=== PATIENT | male | born 1965 | race Caucasian/White ===

== ENCOUNTER 2022-03-05 19:07 | Inpatient (IN) | payer OTHER ==
[~2022-03-05] VITALS: Ht 175.3 cm; Wt 81.2 kg
[2022-03-05 22:00] VITALS: BP 146/86
--- NOTE | 2022-03-05 23:00 | NUR ---
MS TANK WORKER NOTES: RECEIVED PATIENT VIA RNEY DIRECT ADMIT TO [facility] AT 2130 AWAKE NO COMPLAIN OF PAIN AND DISCOMFORT NOTIFY DR RYAN ROONEY, PATIENT IS A/OX2-3 WITH EPISODE OF CONFUSION, IV LINE INSERTED AT RIGHT HAND #[id number]. SKIN ASSESSMENT DONE DOCUMENTED, INVENTORY DONE, PATIENT WAS ORIENTED TO ROOM REMIND TO USE THE CALL LIGHTS WHEN NEEDED ASSISTANCE, PATIENT KEPT CLEAN AND DRY ALL NEEDS MET, WILL CONTINUE TO MONITOR.
[2022-03-05] MEDS ORDERED: ONDANSETRON HCL/PF 4 MG/2 ML VIAL IVP PRN (23:30)
[2022-03-05] MEDS ORDERED: MAGNESIUM HYDROXIDE 30 ML UDC PO PRN (23:30)
[2022-03-05] MEDS ORDERED: ACETAMINOPHEN 325 MG TABLET PO PRN (23:30)
[2022-03-05] MEDS ORDERED: CHLORDIAZEPOXIDE HCL 25 MG CAPSULE PO SCH (23:30)
[2022-03-05] MEDS ORDERED: Z GUARD REMEDY 4 OZ OINT TP PRN (23:30)
[2022-03-05] MEDS: LACTULOSE 10 G/15 ML UDC (PYXIS) PO SCH (23:48)
[2022-03-05] MEDS: THIAMINE HCL 100 MG TABLET PO SCH (23:48)
[2022-03-06] MEDS: LACTULOSE 10 G/15 ML UDC (PYXIS) PO SCH ×4 (05:36→22:49)
--- NOTE | 2022-03-06 06:39 | NUR ---
MS RN CLOSING NOTES: PATIENT SLEEP IN BED COMFORTABLY, AROUSABLE TO VERBAL STIMULI, BED IN LOW POSITION CALL LIGHTS WITHIN REACH, NO COMPLAIN OF PAIN AND DISCOMFORT AT THIS TIME, ON ROOM AIR SATURATING WELL, PATIENT IS A/O X2-3, CONFUSED, AMBULATORY WITH ASSISTANCE, PATIENT KEPT CLEAN AND DRY ALL NEEDS MET WILL CONTINUE TO MONITOR.
[2022-03-06 06:49] LABS: BASOPHILS # (AUTO) 0.1 K/uL (0.0-0.2); BASOPHILS % (AUTO) 1.5 % (0.0-2.0); HEMATOCRIT 37 % (39-51); HEMOGLOBIN 12.3 g/dL (13.5-17.5); LYMPHOCYTES # (AUTO) 1.9 K/uL (0.8-4.8); LYMPHOCYTES % (AUTO) 44.6 % (20.0-44.0); MEAN CORPUSCULAR HGB CONC 33 g/dl (31.0-36.0); MEAN CORPUSCULAR VOLUME 86 fL (80-96); MONOCYTES # (AUTO) 0.4 K/uL (0.1-1.30); MONOCYTES % (AUTO) 10.1 % (2.0-12.0); NEUTROPHILS # (AUTO) 1.7 K/uL (1.8-8.9); NEUTROPHILS % (AUTO) 41.8 % (43.0-81.0); PLATELET COUNT (AUTO) 62 K/uL (150-450); RED BLOOD CELL COUNT(AUTO) 4.32 MIL/uL (4.5-6.0); WHITE BLOOD COUNT (AUTO) 4.2 K/uL (4.3-11.0)
[2022-03-06 07:09] LABS: SERUM AMMONIA 71 umol/L (11-32)
[2022-03-06 07:23] LABS: ALBUMIN 2.9 g/dL (3.4-5.0); BILIRUBIN,DIRECT 0.4 mg/dL (0.0-0.2); BILIRUBIN,TOTAL 1.7 mg/dL (0.2-1.0); CALCIUM, SERUM 9.1 mg/dL (8.5-10.1); CREATININE 0.9 mg/dL (0.6-1.3); MAGNESIUM 2.1 mg/dL (1.8-2.4); PHOSPHORUS 5.4 mg/dL (2.5-4.9); POTASSIUM 3.4 mmol/L (3.5-5.1); TOTAL PROTEIN, SERUM 8.2 g/dL (6.4-8.2)
--- NOTE | 2022-03-06 07:30 | NUR ---
MS RN OPENING NOTES: RECEIVED PATIENT AWAKE IN BED COMFORTABLY. NO COMPLAIN OF PAIN AND DISCOMFORT AT THIS TIME, ON ROOM AIR SATURATING WELL, PATIENT IS A/O X2-3, WITH EPISODES OF CONFUSION. ALL SAFETY MEASURES IN PLACE.BED IN LOW POSITION AND LOCKED.CALL LIGHTS AND TABLE WITHIN REACH, SIDE RAILS TIMES 2 .AMBULATORY WITH ASSISTANCE. WILL CONTINUE TO MONITOR.
[2022-03-06 07:32] LABS: THYROID STIMULATING HORMONE 1.693 uIU/mL (0.358-3.74)
[2022-03-06] MEDS: PANTOPRAZOLE 40 MG TABLET.DR PO SCH (07:41)
[2022-03-06] MEDS: FOLIC ACID 1 MG TABLET PO SCH (08:51)
[2022-03-06] MEDS: ZINC SULFATE 220 MG CAPSULE PO SCH (08:51)
[2022-03-06] MEDS: THIAMINE HCL 100 MG TABLET PO SCH (08:51)
[2022-03-06] MEDS ORDERED: POTASSIUM CHLORIDE 20 MEQ TAB.PRT.SR PO ONE (09:00)
[2022-03-06] MEDS ORDERED: RIFAXIMIN 550 MG TABLET PO SCH (09:00)
--- NOTE | 2022-03-06 09:00 | NUR ---
RN NOTES GOT THE 0900 AM LIBRIUM 25 MG MEDICATION FROM [employer]. SCANNED THE MEDICATION, WHEN WANTED TO SAVE THE RECORD IT GAVE ME AN ERROR WRITTEN IN PURPLE COLOR THAT IT CAN NOT BE FILED. CALLED PHARMACY AND THEY STATED MEDICATION IS DC BY DR CUNNINGHAM. RETURNED THE MEDICATION TO [employer] AND ASIF POE RN WAS THE WITNESS.
[2022-03-06 10:47] LABS: BASOPHILS % (MANUAL) 0 % (0.0-2.0); EOSINOPHILS % (MANUAL) 2 % (0-4); LYMPHOCYTES % (MANUAL) 46 % (16-48); MONOCYTES % (MANUAL) 13 % (0-11.0); NEUTROPHILS % (MANUAL) 39 (42-76)
--- NOTE | 2022-03-06 13:05 | NUR ---
SS Consult: SS CONSULT requested for possible homelessness and Hx. of drug use. The pt. is a 56 -year-old male patient who was transferred for outside facility due to complaints of confusion per EMR. Per EMR, the pt. has Hx. of hepatitis C, cirrhosis, polysubstance abuse, possible prior stroke. Upon SS consult, the pt. is Alert & Oriented x 3 and makes good eye contact. The pt. appears well-groomed with euthymic mood & affect. pt.s speech is WNL and slower thought process per pt. Pt. remained calm & cooperative throughout interview. Pt. denies current SI/ HI and denies hallucinations. SW explored Patients mental health Hx. Pt. denies any mental illness. SW explored pt.s living situation. Patient states he resides at [facility]. SW explored pt.s drug & ETOH use. Pt. states he ahs been sober since September 2021. SW explored pt.s support system. Pt. states he has family in [place] but he is not in communication with them. Plan: Pt. states he would like to return to [facility] [[address], [place] [address]] when ready for discharge. Per nurse, she was notified by [facility] supervisor, [phone] Lillie will be picking up the pt. when ready for discharge. Pt. signed homeless waiver and it was placed in the pt.s chart. Pt. accepted resources: Year-round shelters: [place] [facility] [address] [place], [place] [phone] ; [facility] [address] [place] [address]; [facility] [id number] [facility] [address] Hygiene: [facility]: [address] [address] ; [facility] [address] [facility] Dante ; [facility] [address] . Food Resources: [place] [facility] at [facility]- [address] [place]; Meet Each Need with Dignity ([facility]) [address] [address]. Tiffany; [facility] [address] [facility]; [facility] 8531 [facility]. Mental Health resources provided: [facility] [address] [place] [address] ; [facility] [address] [facility] [address], [place], [place] [id number] ; [facility] [address] [facility] [place], [place] [phone] ; [facility] [address] [place], [place] [address] Healthcare Clinics: [facility] [address] [facility], [address] [place]. [place] ; [facility] [address] [facility] [address] [place] [address]; [facility] [place] [address] [facility]. [place] [phone] Counseling--Outpatient [facility] [address] [facility], [place] [address] (Specializes in in-depth psychotherapy for emotional distress: anxiety, depression, interpersonal conflicts, life transitions, childhood abuse) [facility] [address] [place], [place] [phone] (Assist with solving problem marital difficulties, separation & divorce, aging parents, & grief, chronic & terminal illness) [facility] [address] [place] [address] (Deal with loss & grief, anxiety, marital difficulties) Homebound/Mental Health Services [address] [facility], [address] [place], [place] [address] (Provide in-home mental services to people who are incapable of leaving their homes) [facility] Senior Service/Resource Center [address] [place] [address] [facility] [address] [place] [address] PSYCHIATRIC OUTPATIENT SERVICES [facility] Partial Hospitalization and Intensive Outpatient Program (Managed Care and [place] Only)[address] [facility] [phone] [facility] Partial Hospitalization and Outpatient [id number] [place], [place] [phone] [facility] [place] [id number] [facility]. [address] [place], [place] [phone] [facility] Partial Hospitalization and Outpatient [id number] [facility], [phone] Substance Abuse resources provided included: [facility] Substance Abuse Self-Helpline ([facility]) ; [facility] [address] [facility]. [place] [address] ; [facility] [address] [facility] [address] ; [facility] [address] [place] [facility]uvance Health [address] ; [facility] [address] [facility] [phone] ; [facility] [address] [facility] [address] ; [facility] [address] [facility] [address] ; [facility] Substance Abuse Helpline([facility])-[facility] ; [facility] ; [facility] [place]; [facility]; [facility] [place]; [facility]; [facility] [place]; [facility] [employer] [place]; [facility]; [facility]; Alcoholics Anonymous -[facility]; Jyoti ; Marijuana Anonymous [facility]; Narcotics Anonymous www.na.org;
--- NOTE | 2022-03-06 18:57 | NUR ---
MS RN CLOSING NOTES: PATIENT AWAKE IN BED COMFORTABLY. NO COMPLAIN OF PAIN AND DISCOMFORT AT THIS TIME, ON ROOM AIR SATURATING WELL, PATIENT IS A/O X2-3, WITH EPISODES OF CONFUSION. ALL DUE MEDS GIVEN ORDERED. ALL SAFETY MEASURES IN PLACE.BED IN LOW POSITION AND LOCKED.CALL LIGHTS AND TABLE WITHIN REACH, SIDE RAILS TIMES 2 .AMBULATORY WITH ASSISTANCE. WILL ENDORSE FOR MARK..
--- NOTE | 2022-03-06 19:30 | NUR ---
MS RN OPENING NOTE RECEIVED PATIENT IN BED, AOX2-3, NO S/S OF APPARENT DISTRESS ON ROOM AIR. DENIES PAIN AT THIS TIME. RIGHT HAND IV ACCESS ON SALINE LOCK. RE-ORIENTED AND ENCOURAGED WITH THE USE OF CALL LIGHT. SAFETY IN PLACE. WILL CONTINUE WITH PATIENT'S PLAN OF CARE.
[2022-03-06 20:00] VITALS: BP 131/96
--- NOTE | 2022-03-06 23:25 | NUR ---
tylenol given for patient headache. encouraged fluid intake.
[2022-03-07 04:28] VITALS: BP 131/96
[2022-03-07] MEDS: LACTULOSE 10 G/15 ML UDC (PYXIS) PO SCH ×2 (05:45→13:15)
--- NOTE | 2022-03-07 05:55 | NUR ---
MS RN NOTE MRSA SWAB OBTAINED AT THIS TIME.
--- NOTE | 2022-03-07 06:47 | NUR ---
PATIENT REPORTS 0 BM TONIGHT BUT REPORTS HAVING X4 BM THROUGHOUT THE DAY YESTERDAY.
[2022-03-07 07:00] LABS: CALCIUM, SERUM 8.5 mg/dL (8.5-10.1); MAGNESIUM 1.9 mg/dL (1.8-2.4); POTASSIUM 3.6 mmol/L (3.5-5.1)
--- NOTE | 2022-03-07 07:10 | NUR ---
ms rn received on bed, awake,alert,oriented x3,not in any form of distress, respirations even and unlabored,no sob noted
--- NOTE | 2022-03-07 07:47 | NUR ---
REPORT GIVEN TO KENNETH ENGEL FOR CONTINUITY OF CARE.
--- NOTE | 2022-03-07 07:50 | NUR ---
ms rn received on bed, awake,alert,oriented x3,not in any form of distress, respirations even and unlabored,no sob noted, lungs are clear,abdomen soft,positive bowel sounds, denies pain at this time,all needs attended.
[2022-03-07 08:00] VITALS: BP 149/82
[2022-03-07] MEDS ORDERED: LACT10SO58 PO (08:51)
--- NOTE | 2022-03-07 09:10 | NUR ---
ms hart breakfast served,due meds given,tolerated well.
[2022-03-07] MEDS: ZINC SULFATE 220 MG CAPSULE PO SCH (09:24)
[2022-03-07] MEDS: FOLIC ACID 1 MG TABLET PO SCH (09:24)
[2022-03-07] MEDS: PANTOPRAZOLE 40 MG TABLET.DR PO SCH (09:24)
[2022-03-07] MEDS: THIAMINE HCL 100 MG TABLET PO SCH (09:24)
--- NOTE | 2022-03-07 12:40 | NUR ---
ms rn patient was apple picker by facility staff, discharge instructions given and understood, to have a follow up w/ primary in one week, all needs attended, d/c w/ prescription,all needs attended.
== END 2022-03-07 15:32 | disposition home or self-care (01) | DRG 279 ==
LOC: MED 21:34
PROVIDERS: ADMIT Nurse Practitioner Family; ATTEND Internal Medicine
DX: K72.00 Acute and subacute hepatic failure without coma (principal); D69.59 Other secondary thrombocytopenia; K71.3 Toxic liver disease with chronic persistent hepatitis; B19.20 Unspecified viral hepatitis C without hepatic coma; K74.60 Unspecified cirrhosis of liver; Z59.00 Homelessness unspecified; Z86.73 Personal history of transient ischemic attack (TIA), and cerebral infarction without residual deficits; D64.9 Anemia, unspecified; F19.10 Other psychoactive substance abuse, uncomplicated; Z87.891 Personal history of nicotine dependence
CPT/HCPCS: 36415; 80048-TC; 80061-TC; 80076-TC; 82140-TC; 82607-TC; 82728-TC; 83540-TC; 83735-TC; 84100-TC; 84443-TC; 85025-TC; 87081-TC; G0378